=== PATIENT | female | born 1950 | race Caucasian/White ===

== ENCOUNTER 2017-01-10 10:29 | Emergency (ER) | payer BC, MEDICARE ==
--- NOTE | 2017-01-10 10:50 | ER Document Report ---
ED Medical Screen (RME) - General Chief Complaint: Altered Mental Status Stated Complaint: FELL/ARM PAIN Time seen by provider: 10:47 Mode of Arrival: Ambulatory Information source: Patient Notes: 66-year-old diabetic female had 2 episodes last night 1 at 2:00 and one at 4:35 that lasted 25 minutes of incoherent speech, not knowing what was wrong, her daughter witnessed the episodes where she was supine on the chair flailing her arms around. She also injured her left arm on the walker. No history of stroke. Fell forward when she missed the chair at home. She is normal at this time. TRAVEL OUTSIDE OF THE [place] IN LAST 30 DAYS: No - Related Data Allergies/Adverse Reactions: No Known Allergies Allergy (Unverified 01/10/17 10:40) Past Medical History Endocrine Medical History: Reports: Hx Diabetes Mellitus Type 2 Renal/ Medical History: Denies: Hx Peritoneal Dialysis Physical Exam - Vital signs Vitals: Temp Pulse Resp BP Pulse Ox 98 F 100 18 156/80 H 100 01/10/17 10:35 01/10/17 10:35 01/10/17 10:35 01/10/17 10:35 01/10/17 10:35 Course - Vital Signs Vital signs: Temp Pulse Resp BP Pulse Ox 98 F 100 18 156/80 H 100 01/10/17 10:35 01/10/17 10:35 01/10/17 10:35 01/10/17 10:35 01/10/17 10:35
[2017-01-10 11:12] LABS: ABSOLUTE BASOPHILS # (AUTO) 0.1 10^3/uL (0.0-0.2); ABSOLUTE EOSINOPHILS # (AUTO) 0.1 10^3/uL (0.0-0.6); ABSOLUTE LYMPHOCYTES (AUTO) 1.2 10^3/uL (0.5-4.7); ABSOLUTE MONOCYTES (AUTO) 0.3 10^3/uL (0.1-1.4); ABSOLUTE NEUT (AUTO) 8.9 10^3/uL (1.7-8.2); BASOPHILS % (AUTO) 0.6 % (0-2); EOSINOPHILS % (AUTO) 1.3 % (0-6); HEMATOCRIT 28.6 % (36.0-47.0); HEMOGLOBIN 9.7 g/dL (12.0-15.5); HGB HCT DIFFERENCE 0.5; LYMPHOCYTES % (AUTO) 11.6 % (13-45); MEAN CORPUSCULAR HEMOGLOBIN 32.3 pg (27.0-33.4); MEAN CORPUSCULAR HGB CONC 34.1 g/dL (32.0-36.0); MEAN CORPUSCULAR VOLUME 95 fl (80-97); MONOCYTES % (AUTO) 2.8 % (3-13); RED BLOOD COUNT 3.01 10^6/uL (3.72-5.28); SEGMENTED NEUTROPHILS % (AUTO) 83.7 % (42-78); WHITE BLOOD COUNT 10.6 10^3/uL (4.0-10.5)
[2017-01-10 11:18] LABS: PARTIAL THROMBOPLASTIN TIME 32.3 SEC (23.5-35.8)
[2017-01-10 11:20] LABS: PROTHROMBIN TIME 12.5 SEC (11.4-15.4)
[2017-01-10 11:30] LABS: ALANINE AMINOTRANSFERASE 36 U/L (9-52); ALBUMIN 3.5 g/dL (3.5-5.0); ALCOHOL < 10 mg/dL (NONE DETECTED); ALKALINE PHOSPHATASE 93 U/L (38-126); ANION GAP 12 (5-19); ASPARTATE AMINO TRANSFERASE 32 U/L (14-36); BILIRUBIN,DIRECT 0.1 mg/dL (0.0-0.4); BILIRUBIN,TOTAL 0.2 mg/dL (0.2-1.3); BLOOD UREA NITROGEN 27 mg/dL (7-20); CALCIUM 9.1 mg/dL (8.4-10.2); CARBON DIOXIDE 22 mmol/L (22-30); CHLORIDE 111 mmol/L (98-107); CREATINE KINASE 256 U/L (30-135); CREATININE RESULT 0.93 mg/dL (0.52-1.25); GLUCOSE 87 mg/dL (75-110); MAGNESIUM 1.3 mg/dL (1.6-2.3); POTASSIUM 4.6 mmol/L (3.6-5.0); SODIUM 145.1 mmol/L (137-145); TOTAL PROTEIN 6.5 g/dL (6.3-8.2)
[2017-01-10 11:40] LABS: CREATINE KINASE MB 6.04 ng/mL (<4.55); TROPONIN I 0.015 ng/mL
[2017-01-10 12:06] LABS: APPEARANCE,URINE CLOUDY; BILIRUBIN,URINE NEGATIVE (NEGATIVE); GLUCOSE, URINE NEGATIVE (NEGATIVE); KETONES,URINE NEGATIVE (NEGATIVE); LEUKOCYTE ESTERASE,URINE SMALL (NEGATIVE); NITRITE,URINE NEGATIVE (NEGATIVE); PROTEIN,URINE >=500 mg/dL (NEGATIVE); URINE SPECIFIC GRAVITY 1.012; UROBILINOGEN,URINE NEGATIVE mg/dL (<2.0)
--- NOTE | 2017-01-10 12:06 | ER Document Report ---
ED Neuro Symptoms/Deficit - General Mode of Arrival: Ambulatory Information source: Patient, Relative TRAVEL OUTSIDE OF THE [place] IN LAST 30 DAYS: No - HPI Patient complains to provider of: Falling, Speech Impairment Onset: This morning Baseline Cognitive: Alert, oriented X 3 Baseline Gait: Uses a cane/walker Associated symptoms: Other - see notes above <JOHN MIGUEL - Last Filed: 01/10/17 12:36> <CARLOS MANUEL HULL - Last Filed: 01/10/17 16:02> - General Chief Complaint: Altered Mental Status Stated Complaint: FELL/ARM PAIN Notes: 66 year old female with history of diabetes mellitus type 2 presents to the ED after having 2 TIA like episodes earlier this morning. Family states that at 0200, the patient woke up in a "paranoid" state, was half hanging off her WC as if she was too weak to pull her self back up, and didn't know where she was. Family reports that this episode lasted about 25 minutes and then the patient went back to sleep. Patient's daughter woke up at 0430 and saw that the patient had fallen on the ground with the wheelchair knocked over. Daughter helped her up to the wheelchair and noticed that the patient's speech was incoherent. When the daughter was able to make out what the patient was saying, she states that she kept repeating "I want to get back in 'bread'." Daughter states that she didn't think this was due to her diabetes and denies checking the patient's blood sugars. Daughter states that at 0830 this morning the patient's blood sugar was 32. Patient proceeded to eat an omelet at 0900. Patient's primary care provider is Dr. Doyle. (JOHN MIGUEL) This 66-year-old diabetic with significant vascular disease, comes emergency room with a episode about 2 AM and again about 4:30 AM of confusion, disorientation, and speech problems. Both episodes lasted approximately 20-25 minutes. Put sugars were not checked. The patient recalls the episodes and states it does not feel like when her sugar is low. By history she checked her sugars about 8:30 AM and her blood sugar was 32 and at that time she ate an omelette. She stopped smoking in the recent past. She does take statins, insulin, metformin, lisinopril, and Lasix. She does not take a daily aspirin. (CARLOS MANUEL HULL) - Related Data Allergies/Adverse Reactions: No Known Allergies Allergy (Unverified 01/10/17 10:40) Past Medical History - General Information source: Patient - Social History Smoking Status: Former Smoker Chew tobacco use (# tins/day): No Frequency of alcohol use: None Drug Abuse: None Family History: Reviewed & Not Pertinent Patient has suicidal ideation: No Patient has homicidal ideation: No Endocrine Medical History: Reports: Hx Diabetes Mellitus Type 2 Renal/ Medical History: Denies: Hx Peritoneal Dialysis Past Surgical History: Reports: Hx Section - Immunizations Hx Diphtheria, Pertussis, Tetanus Vaccination: Yes <JOHN MIGUEL - Last Filed: 01/10/17 12:36> Review of Systems - Review of Systems Constitutional: No symptoms reported EENT: No symptoms reported Cardiovascular: No symptoms reported Respiratory: No symptoms reported Gastrointestinal: No symptoms reported Genitourinary: No symptoms reported Female Genitourinary: No symptoms reported Musculoskeletal: No symptoms reported Skin: No symptoms reported Hematologic/Lymphatic: No symptoms reported Neurological/Psychological: See HPI, Weakness, Speech impairment -: Yes All other systems reviewed and negative <JOHN MIGUEL - Last Filed: 01/10/17 12:36> Physical Exam - General General appearance: Alert In distress: None - HEENT Head: Normocephalic, Atraumatic Eyes: Normal Extraocular movements intact: Yes Pupils: PERRL Neck: Carotid bruit - loud bilateral carotid bruits. No: Normal - Respiratory Respiratory status: No respiratory distress Breath sounds: Normal - Cardiovascular Rhythm: Regular Heart sounds: Normal auscultation - Abdominal Inspection: Normal Distension: No distension Tenderness: Nontender - Back Back: Normal - Extremities General upper extremity: Normal ROM. No: Normal inspection - see forearm exam below General lower extremity: Normal inspection, Normal ROM Elbow: Normal, Nontender, Other - Good supination and pronation.. No: Limited ROM Forearm: Other - Small area of bruising to the left medial forearm. No: Normal - Neurological Neuro grossly intact: Yes - Psychological Associated symptoms: Normal affect, Normal mood - Skin Skin Temperature: Warm Skin Moisture: Dry Skin Color: Normal <JOHN MIGUEL - Last Filed: 01/10/17 12:36> Course - Laboratory Result Diagrams: 01/10/17 11:00 01/10/17 11:00 <JOHN MIGUEL - Last Filed: 01/10/17 12:36> - Laboratory Result Diagrams: 01/10/17 11:00 01/10/17 11:00 - Diagnostic Test Radiology reviewed: Image reviewed, Reports reviewed - CT MAI shows significant stenosis of the origin of the left common carotid artery and left subclavian artery. There is heavy calcifications at the origin of the right brachiocephalic artery and left common carotid artery, and the left subclavian artery. There are bilateral calcifications in the carotid bulb and proximal internal carotid arteries. There is no significant stenosis on the right. <CARLOS MANUEL HULL - Last Filed: 01/10/17 16:02> - Vital Signs Vital signs: Temp Pulse Resp BP Pulse Ox 98 F 99 21 H 142/72 H 97 01/10/17 10:35 01/10/17 15:00 01/10/17 15:01 01/10/17 15:00 01/10/17 15:01 - Laboratory Laboratory results interpreted by me: 01/10/17 01/10/17 01/10/17 11:00 11:00 11:00 WBC 10.6 H RBC 3.01 L Hgb 9.7 L Hct 28.6 L Plt Count 453 H Seg Neutrophils % 83.7 H Lymphocytes % 11.6 L Monocytes % 2.8 L Absolute Neutrophils 8.9 H Sodium 145.1 H Chloride 111 H BUN 27 H Magnesium 1.3 L Creatine Kinase 256 H CK-MB (CK-2) 6.04 H Urine Protein Urine Blood Ur Leukocyte Esterase 01/10/17 11:08 WBC RBC Hgb Hct Plt Count Seg Neutrophils % Lymphocytes % Monocytes % Absolute Neutrophils Sodium Chloride BUN Magnesium Creatine Kinase CK-MB (CK-2) Urine Protein >=500 H Urine Blood SMALL H Ur Leukocyte Esterase SMALL H Discharge <JOHN MIGUEL - Last Filed: 01/10/17 12:36> <CARLOS MANUEL HULL - Last Filed: 01/10/17 16:02> - Discharge Clinical Impression: TIA (transient ischemic attack) Qualifiers: Transient cerebral ischemia type: unspecified Qualified Code(s): G45.9 - Transient cerebral ischemic attack, unspecified Carotid artery stenosis, symptomatic Qualifiers: Laterality: left Qualified Code(s): I65.22 - Occlusion and stenosis of left carotid artery Condition: Stable Disposition: HOME, SELF-CARE Additional Instructions: Transient Ischemic Attack: You have been diagnosed as having a transient ischemic attack (TIA). This is caused when an artery to the brain has been temporarily blocked. It can result in visual changes, difficulty with speech, and weakness or numbness -- usually limited to one side of the body. TIA symptoms usually resolve within an hour, but a TIA is serious, as it may be a warning sign of an impending stroke. To prevent further episodes, you may be placed on medication to reduce the possibility that your platelets will aggregate and form blood clots in the arteries that supply the brain. Usually, this includes aspirin and sometimes other platelet inhibitors. Further evaluation is often necessary to make an exact diagnosis as to where these blood clots are originating, and if anything else needs to be done to correct the problem. Call the physician or go to the emergency room if episodes occur with increasing frequency. If symptoms occur that don't go away within a few minutes , call 911. Take the Aggrenox medication every 12 hours as prescribed--start tomorrow morning. You were given the first dose today in the emergency room. Follow-up with Dr. Castro on Friday or Friday for referral to a vascular surgeon-- tell him about the CT scan that was done today. RETURN TO THE EMERGENCY ROOM IF ANY NEW OR WORSENING SYMPTOMS. Prescriptions: Aspirin/Dipyridamole [Aggrenox 25 mg-200 mg Capsule] 1 each PO Q12 #30 cpmp.12hr Referrals: ARMINDA CASTRO MD [COMMUNITY BASED STAFF] - 01/13/17 Scribe Attestation: 01/10/17 16:02 I personally performed the services described in the documentation, reviewed and edited the documentation which was dictated to the scribe in my presence, and it accurately records my words and actions. (CARLOS MANUEL HULL) Scribe Documentation - Scribe Written by Sony:: Sony Velazquez, 01/10/2017 1222 acting as scribe for :: Miriam <JOHN MIGUEL - Last Filed: 01/10/17 12:36>
[2017-01-10 12:21] LABS: URINE BARBITURATES SCREEN NEGATIVE; URINE METHADONE SCREEN NEGATIVE; URINE OPIATES LOW NEGATIVE; URINE PHENCYCLIDINE SCREEN NEGATIVE
[2017-01-10] MEDS ORDERED: NORMAL SALINE 1000 ML 1,000 ML IV ONE (12:47)
[2017-01-10] MEDS ORDERED: ASPIRIN/DIPYRIDAMOLE 25-200 MG 1 CAP.SR CPMP.12HR PO ONE (15:52)
--- NOTE | 2017-01-10 16:26 | EKG REPORT ---
SEVERITY:- OTHERWISE NORMAL ECG - SINUS RHYTHM MINIMAL ST DEPRESSION, INFERIOR LEADS : Confirmed by: Damian Davidson MD 10-Jan-2017 16:26:31
[2017-01-10 16:39] VITALS: BP 100/75
== END 2017-01-10 16:30 | disposition home or self-care (01) ==
LOC: ER 10:29
DX: G45.9 Transient cerebral ischemic attack, unspecified (principal); I65.22 Occlusion and stenosis of left carotid artery; R41.82 Altered mental status, unspecified; R53.1 Weakness; E11.9 Type 2 diabetes mellitus without complications; Z79.84 Long term (current) use of oral hypoglycemic drugs; Z87.891 Personal history of nicotine dependence
CPT/HCPCS: 93005; 99285; 36415; 87086; 82553; 82962; 80307 ×2; 82550; 83735; 85025; 85610; 85730; 80053; 81001; 84484; 71010; 70470; 70498; 93010; A9270

== ENCOUNTER 2017-03-20 10:47 | Day surgery (SDC) | payer MEDICARE ==
[~2017-03-20 10:47] MED LIST: BUPIVACAINE HCL 0.75% INJ/PF (7.5 MG/1 ML) 10 ML SDV OD PRN; CHONDR SU A NA/HYALUR INTRAOC KIT (SURGICARE) ONE; KETOROLAC TROMETHAMINE 0.45% 4 DROP/0.4 ML DROPERETTE OD PRN; LIDOCAINE 1% INJ-PF (10 MG/ML) 30 ML SDV ONE; PHENYLEPHRINE/KETOROLAC 1%-0.3% 4 ML VIAL ONE
[2017-03-20] MEDS: CYCLOPENTOLATE 0.2%/PHENYLEPHRINE 1% OPH SOLN 2 ML OD PRN ×3 (10:56→11:40)
[2017-03-20] MEDS: TROPICAMIDE 1% OPH SOLN 3 ML OD PRN ×3 (10:56→11:40)
[2017-03-20] MEDS: BESIFLOXACIN HCL 0.6% OPH SUSP 5 ML BOTTLE OD PRN ×4 (10:57→12:14)
[2017-03-20] MEDS: TETRACAINE HCL 0.5% OPH SOLN 2 ML OD PRN ×3 (10:58→11:52)
[2017-03-20] MEDS ORDERED: MIDAZOLAM 2 MG/2 ML INJ ONE (11:24)
--- NOTE | 2017-03-23 20:14 | [facility] OPERATIVE REPORT E ---
[facility] Operative Report NAME: KENY SMITH AGE: 66Y DATE OF SURGERY: 03/20/2017 ROOM: PREOPERATIVE DIAGNOSIS: Cataract, right eye. POSTOPERATIVE DIAGNOSIS: Cataract, right eye. OPERATION: Cataract extraction with intraocular lens implant of the right eye. SURGEON: CLIFF GROSSMAN M.D. ANESTHESIA: Topical. PROCEDURE: After obtaining appropriate consent, the patient's right eye was prepped and draped in sterile fashion as well as the surgeon in a sterile manner and cataract surgery was started. First a paracentesis blade was used to make a small side-port incision. Viscoelastic was used to inflate the anterior chamber. Next a 2.4 mm incision was made with the paracentesis blade. A continuous capsulorrhexis incision was made using a cystotome and Utrata forceps. Following this hydrodissection was carried out to make the lens fully loose and mobile and it was rotated 90 degrees. Following this, a wdtkcx-vap-hmbavyx technique was used to phacoemulsify the lens with a CDE of 12.24. The remaining cortex was removed with irrigation/aspiration. Provisc was instilled into the capsular bag to inflate the bag. A SN60WF, 24.0 diopter lens was placed. The remaining viscoelastic material was removed with irrigation/aspiration. Following this, a 10-0 nylon suture was used to close the incision and it was found to be watertight. Vigamox was instilled in the eye and a protective shield was placed over the eye. The patient returned to the postoperative recovery in stable condition. DICTATING PHYSICIAN: CLIFF GROSSMAN M.D. [id number] PHY#: [id number] ID: [id number] JOB#: [id number] ACCT: [id number] cc:CLIFF GROSSMAN M.D. >
--- NOTE | 2017-03-23 20:14 | [facility] DISCHARGE SUMMARY E ---
[facility] Discharge Summary NAME: KENY SMITH AGE: 66Y ADMITTED: 03/20/2017 DISCHARGED: 03/20/2017 HISTORY OF PRESENT ILLNESS AND HOSPITAL COURSE: This is a 66-year-old patient who underwent cataract extraction of the right eye. DIAGNOSIS: Cataract, right eye. HOSPITAL COURSE: She underwent surgery because she was having difficulty with glare from headlights. The patient had difficulty seeing things clearly. DISCHARGE INSTRUCTIONS: 1. She should be on a regular diet. 2. No bending at the waist and no heavy lifting. 3. She is to use Besivance, Ilevro, and Durezol at 3 p.m. and 8 p.m. and sleep with a rigid shield. 4. I will see the patient for a one-day postop visit. DICTATING PHYSICIAN: CLIFF GROSSMAN M.D. [id number] PHY#: [id number] ID: [id number] JOB#: [id number] ACCT: [id number] cc:CLIFF GROSSMAN M.D. >
== END 2017-03-20 13:21 | disposition home or self-care (01) ==
LOC: SC 10:47
PROVIDERS: ATTEND Internal Medicine
PROC: 08RJ3JZ Replacement of Right Lens with Synthetic Substitute, Percutaneous Approach (ICD-10-PCS; principal; 2017-03-20 12:00)
DX: H25.813 Combined forms of age-related cataract, bilateral (principal); H57.03 Miosis; E11.3312 Type 2 diabetes mellitus with moderate nonproliferative diabetic retinopathy with macular edema, left eye; I10 Essential (primary) hypertension; Z79.4 Long term (current) use of insulin; Z87.891 Personal history of nicotine dependence; Z79.84 Long term (current) use of oral hypoglycemic drugs
CPT/HCPCS: 66984; 82962; V2632; J2250; J3490 ×2; A9270; C9447; 142

== ENCOUNTER 2017-04-10 10:15 | Day surgery (SDC) | payer MEDICARE ==
[~2017-04-10 10:15] MED LIST changes: -BUPIVACAINE HCL 0.75% INJ/PF (7.5 MG/1 ML) 10 ML SDV OD PRN; -CHONDR SU A NA/HYALUR INTRAOC KIT (SURGICARE) ONE; -KETOROLAC TROMETHAMINE 0.45% 4 DROP/0.4 ML DROPERETTE OD PRN; +KETOROLAC TROMETHAMINE 0.45% 4 DROP/0.4 ML DROPERETTE OS PRN; -LIDOCAINE 1% INJ-PF (10 MG/ML) 30 ML SDV ONE; +MIDAZOLAM 2 MG/2 ML INJ ONE; -PHENYLEPHRINE/KETOROLAC 1%-0.3% 4 ML VIAL ONE
[2017-04-10] MEDS ORDERED: CHONDR SU A NA/HYALUR INTRAOC KIT (SURGICARE) ONE (10:32)
[2017-04-10] MEDS ORDERED: PHENYLEPHRINE/KETOROLAC 1%-0.3% 4 ML VIAL ONE (10:32)
[2017-04-10] MEDS ORDERED: LIDOCAINE 1% INJ-PF (10 MG/ML) 30 ML SDV ONE (10:32)
[2017-04-10] MEDS: CYCLOPENTOLATE 0.2%/PHENYLEPHRINE 1% OPH SOLN 2 ML OS PRN ×3 (10:36→10:53)
[2017-04-10] MEDS: TROPICAMIDE 1% OPH SOLN 3 ML OS PRN ×3 (10:36→10:53)
[2017-04-10] MEDS: BESIFLOXACIN HCL 0.6% OPH SUSP 5 ML BOTTLE OS PRN ×3 (10:37→11:21)
[2017-04-10] MEDS: TETRACAINE HCL 0.5% OPH SOLN 2 ML OS PRN ×3 (10:38→10:57)
[2017-04-10] MEDS ORDERED: DEXTROSE 50%-WATER 25 GM/50 ML DISP.SYRIN IV ONE (10:41)
--- NOTE | 2017-04-10 12:48 | [facility] OPERATIVE REPORT E ---
[facility] Operative Report NAME: KENY SMITH AGE: 66Y DATE OF SURGERY: 04/10/2017 ROOM: PREOPERATIVE DIAGNOSES: 1. CATARACT, LEFT EYE. 2. PUPIL MIOSIS, LEFT EYE. POSTOPERATIVE DIAGNOSES: 1. CATARACT, LEFT EYE. 2. PUPIL MIOSIS, LEFT EYE. OPERATION: Complex cataract extraction with use of a Malyugin ring due to a very miotic pupil. SURGEON: CLIFF GROSSMAN M.D. ANESTHESIA: Topical. PROCEDURE: After obtaining appropriate consent, the patient's left eye was prepped and draped in sterile fashion as well as the surgeon in a sterile manner and cataract surgery was started. First a paracentesis blade was used to make a small side-port incision. Viscoelastic was used to inflate the anterior chamber. Next a 2.4-mm incision was made with the paracentesis blade. A continuous capsulorrhexis incision was made using a cystotome and Utrata forceps. Following this hydrodissection was carried out to make the lens fully loose and mobile and it was rotated 90 degrees. Following this, a mtmmbt-snr-iojccqg technique was used to phacoemulsify the lens with a CDE of 8.19. The remaining cortex was removed with irrigation/aspiration. Provisc was instilled into the capsular bag to inflate the bag. A SN60WF, 24.0 diopter lens was placed. The remaining viscoelastic material was removed with irrigation/aspiration. Following this, a 10-0 nylon suture was used to close the incision and it was found to be watertight. Vigamox was instilled in the eye and a protective shield was placed over the eye. The patient returned to the postoperative recovery in stable condition. Prior to making the capsulorrhexis a Malyugin ring was inserted due to a very miotic pupil. This was removed at the end of the case. DICTATING PHYSICIAN: CLIFF GROSSMAN M.D. [id number] PHY#: [id number] ID: [id number] JOB#: [id number] ACCT: [id number] cc:CLIFF GROSSMAN M.D. >
--- NOTE | 2017-04-10 12:49 | [facility] DISCHARGE SUMMARY E ---
[facility] Discharge Summary NAME: KENY SMITH AGE: 66Y ADMITTED: 04/10/2017 DISCHARGED: 04/10/2017 HISTORY: This is a 66-year-old female who underwent cataract extraction, complex, of the left eye. The patient underwent surgery because she was having difficulty reading medicine bottles and the newspaper. DIAGNOSES: 1. Cataract, left eye. 2. Pupil miosis requiring a Malyugin ring. DISCHARGE INSTRUCTIONS: Patient should be on a regular diet, no bending at the waist, no heavy lifting. She should use her Besivance, Ilevro and Durezol at 3 p.m. and 8 p.m. and sleep with a rigid shield, and I will see her for her 1-day postoperative tomorrow. DICTATING PHYSICIAN: CLIFF GROSSMAN M.D. [id number] PHY#: [id number] ID: [id number] JOB#: [id number] ACCT: [id number] cc:CLIFF GROSSMAN M.D. >
== END 2017-04-10 12:28 | disposition home or self-care (01) ==
LOC: SC 10:15
PROVIDERS: ATTEND Internal Medicine
PROC: 08RK3JZ Replacement of Left Lens with Synthetic Substitute, Percutaneous Approach (ICD-10-PCS; principal; 2017-04-10 11:30)
DX: H25.812 Combined forms of age-related cataract, left eye (principal); H57.03 Miosis; Z96.1 Presence of intraocular lens; I10 Essential (primary) hypertension; E11.9 Type 2 diabetes mellitus without complications; Z79.4 Long term (current) use of insulin; Z79.84 Long term (current) use of oral hypoglycemic drugs; Z79.899 Other long term (current) drug therapy
CPT/HCPCS: 66982; 82962; V2632; J2250; J3490 ×3; A9270; C9447; 142

== ENCOUNTER → 2018-01-14 | Outpatient (CLI) | payer MEDICARE ==
--- NOTE | 2018-01-14 16:47 | WOMENS IMAGING REPORT ---
EXAM DESCRIPTION: 3D SCREENING MAMMO BILAT COMPLETED DATE/TIME: 01/14/2018 11:58 am REASON FOR STUDY: ROUTINE SCREENING;Z12.31 Z12.31 ENCNTR SCREEN MAMMOGRAM FOR MALIGNANT NEOPLASM OF MALICK COMPARISON: None. TECHNIQUE: Standard craniocaudal and mediolateral oblique views of each breast recorded using digita l acquisition and breast tomosynthesis. LIMITATIONS: None. FINDINGS: No masses, calcifications or architectural distortion. No areas of suspicion. Read with the assistance of CAD. .[facility] - R2 Cenova Version 1.3 .[facility] - R2 Cenova Version 1.3 .[facility] - R2 Cenova Version 2.4 .[facility] - R2 Cenova Version 2.4 .[facility] - R2 [employer] Version 9.2 IMPRESSION: NORMAL MAMMOGRAM. BIRADS 1. BREAST DENSITY: c. The breasts are heterogeneously dense, which may obscure small masses. BIRAD: 1 NEGATIVE RECOMMENDATION: ROUTINE SCREENING COMMENT: The patient has been notified of the results by letter per SA requirements. Additional no tification policies are in place for contacting patient with suspicious or incomplete findings. Quality ID #[id number]: The [employer] recommends an annual screening mammogram for women aged 40 years or over. This facility utilizes a reminder system to ensure that all patients receive reminder letters, and/or direct phone calls for appointments. This includes reminders for routine scr eening mammograms, diagnostic mammograms, or other Breast Imaging Interventions when appropriate. Th is patient will be placed in the appropriate reminder system. The [employer] (ACR) has developed recommendations for screening MRI of the breast s in certain patient populations, to be used in conjunction with mammography. Breast MRI surveillanc e may be appropriate for women with more than 20% lifetime risk of developing breast cancer as deter mined by genetic testing, significant family history of the disease, or history of mantle radiation f or Hodgkins Disease. ACR Practice Guidelines 2008. DBT Technology DBT is a type of tomographic mammography. With conventional mammography, overlapping breast tissue ma y make lesions difficult to detect, even with good compression. DBT uses an x-ray tube that rotates a round the breast, taking images at different angles. These images are then combined to create thin sl ices of the breast that the radiologist can view as a 3D reconstruction. The [employer] unit can perform full-field digital mammograms (2D imaging); or DBT (3D imaging); or both, in a combination mode that quickly performs both the mammogram and the tomosynthesis scan while the breast is still compressed. PQRS 6045F: Fluoroscopic imaging is not utilized for breast tomosynthesis. TECHNICAL DOCUMENTATION: FINDING NUMBER: (1) ASSESSMENT: (1) JOB ID: [id number] [employer]- All Rights Reserved Reading location - IP/workstation name: [email or web address]
== END ==
LOC: WI 11:31
PROVIDERS: ATTEND Physician Assistant
DX: Z12.31 Encounter for screening mammogram for malignant neoplasm of breast (principal)
CPT/HCPCS: 77063; 77067

== ENCOUNTER → 2018-02-02 | Outpatient (CLI) | payer MEDICARE ==
--- NOTE | 2018-02-02 15:37 | RADIOLOGY REPORT (SQ) ---
EXAM DESCRIPTION: CAROTID DOPPLER COMPLETED DATE/TIME: 02/02/2018 2:03 pm REASON FOR STUDY: STENOSIS I65.23 OCCLUSION AND STENOSIS OF BILATERAL CAROTID ARTERIES COMPARISON: None. TECHNIQUE: Grayscale ultrasound, Doppler velocity and spectra, and color Doppler images acquired of the extra-cranial carotid and vertebral arteries. Images stored on PACS. LIMITATIONS: None. FINDINGS: RIGHT CAROTID CCA Velocities: 63 centimeters/second ICA Velocities Peak systolic 186 cm/s. End diastolic 32 cm/s. Proximal ICA/CCA peak systolic ratio 2.9. Heterogeneous and irregular plaque. LEFT CAROTID CCA Velocities: 85 centimeters/second ICA Velocities Peak systolic 235 cm/s. End diastolic 64 cm/s. Proximal ICA/CCA peak systolic ratio 2.7. Heterogeneous and irregular plaque. VERTEBRAL ARTERIES: Antegrade flow. Normal waveforms. SUBCLAVIAN ARTERIES: No finding. OTHER: No other significant finding. IMPRESSION: Extensive atherosclerotic disease bilaterally. Stenosis the right internal carotid on t leesa order 50-69% and in the left on the order of 70 to 99%, likely closer to 70% appear COMMENT: Quality ID #195: Velocity criteria are extrapolated from the diameter data as defined by [employer] in Ultrasound Consensus Conference. Radiology 2003: 229; 340-346. TECHNICAL DOCUMENTATION: JOB ID: [id number] [employer]- All Rights Reserved Reading location - IP/workstation name: [email or web address]
== END ==
LOC: SP 12:40
PROVIDERS: ATTEND Internal Medicine Nephrology
DX: E11.22 Type 2 diabetes mellitus with diabetic chronic kidney disease (principal); I13.0 Hypertensive heart and chronic kidney disease with heart failure and stage 1 through stage 4 chronic kidney disease, or unspecified chronic kidney disease; N18.3 Chronic kidney disease, stage 3 (moderate); I65.23 Occlusion and stenosis of bilateral carotid arteries
CPT/HCPCS: 93880

== ENCOUNTER → 2018-02-20 | Outpatient (CLI) | payer MEDICARE ==
[2018-02-20 13:42] LABS: ABSOLUTE EOSINOPHILS # (AUTO) 0.3 10^3/uL (0.0-0.6); ABSOLUTE MONOCYTES (AUTO) 0.3 10^3/uL (0.1-1.4); ABSOLUTE NEUT (AUTO) 7.7 10^3/uL (1.7-8.2); BASOPHILS % (AUTO) 0.5 % (0-2); EOSINOPHILS % (AUTO) 3.6 % (0-6); HEMOGLOBIN 8.8 g/dL (12.0-15.5); LYMPHOCYTES % (AUTO) 10.9 % (13-45); MEAN CORPUSCULAR HGB CONC 32.7 g/dL (32.0-36.0); MEAN CORPUSCULAR VOLUME 95 fl (80-97); MONOCYTES % (AUTO) 3.2 % (3-13); PLATELET COUNT 382 10^3/uL (150-450); RED BLOOD COUNT 2.85 10^6/uL (3.72-5.28); RED CELL DISTRIBUTION WIDTH 14.9 % (11.5-14.0); SEGMENTED NEUTROPHILS % (AUTO) 81.8 % (42-78); TOTAL CELLS COUNTED % (AUTO) 100 %; WHITE BLOOD COUNT 9.4 10^3/uL (4.0-10.5)
[2018-02-20 14:06] LABS: ALANINE AMINOTRANSFERASE 53 U/L (9-52); ALBUMIN 3.4 g/dL (3.5-5.0); ALKALINE PHOSPHATASE 129 U/L (38-126); ANION GAP 13 (5-19); APPEARANCE,URINE CLOUDY; ASPARTATE AMINO TRANSFERASE 32 U/L (14-36); BILIRUBIN,URINE NEGATIVE (NEGATIVE); BLOOD UREA NITROGEN 55 mg/dL (7-20); CALCIUM 8.9 mg/dL (8.4-10.2); CARBON DIOXIDE 15 mmol/L (22-30); CHLORIDE 116 mmol/L (98-107); COLOR,URINE YELLOW; GLUCOSE 205 mg/dL (75-110); GLUCOSE, URINE >=500 mg/dL (NEGATIVE); IRON(TIBC) 29.9 ug/dL (37-170); KETONES,URINE NEGATIVE (NEGATIVE); LEUKOCYTE ESTERASE,URINE MODERATE (NEGATIVE); NITRITE,URINE NEGATIVE (NEGATIVE); POTASSIUM 5.4 mmol/L (3.6-5.0); PROTEIN,URINE >=500 mg/dL (NEGATIVE); URINE SPECIFIC GRAVITY 1.013; UROBILINOGEN,URINE NEGATIVE mg/dL (<2.0)
[2018-02-20 15:02] LABS: BILIRUBIN,TOTAL < 0.1 mg/dL (0.2-1.3)
[2018-02-23 11:38] LABS: A/G RATIO 0.7 (0.7-1.7); ALBUMIN 2 2.8 g/dL (2.9-4.4); ALPHA-2-GLOBULIN 2 1.1 g/dL (0.4-1.0); BETA GLOBULINS 1.3 g/dL (0.7-1.3); GAMMA GLOBULIN 1.2 g/dL (0.4-1.8); GLOBULIN TOTAL 3.9 g/dL (2.2-3.9); MONOCLONAL SPIKE Not Observed g/dL (Not Observ); PROTEIN TOTAL SERUM 6.7 g/dL (6.0-8.5)
== END ==
LOC: OD 12:47
PROVIDERS: ATTEND Internal Medicine Nephrology
DX: I12.9 Hypertensive chronic kidney disease with stage 1 through stage 4 chronic kidney disease, or unspecified chronic kidney disease (principal); N18.3 Chronic kidney disease, stage 3 (moderate); E11.9 Type 2 diabetes mellitus without complications; D64.9 Anemia, unspecified
CPT/HCPCS: 36415; 80053; 81001; 82607; 82728; 83540; 83550; 84165; 84443; 85025

== ENCOUNTER → 2018-03-13 | Outpatient (CLI) | payer MEDICARE ==
[2018-03-13 13:09] LABS: HEMATOCRIT 27.2 % (36.0-47.0); HEMOGLOBIN 8.4 g/dL (12.0-15.5); MEAN CORPUSCULAR HEMOGLOBIN 29.7 pg (27.0-33.4); MEAN CORPUSCULAR VOLUME 96 fl (80-97); PLATELET COUNT 479 10^3/uL (150-450); RED BLOOD COUNT 2.84 10^6/uL (3.72-5.28); RED CELL DISTRIBUTION WIDTH 14.9 % (11.5-14.0); WHITE BLOOD COUNT 11.4 10^3/uL (4.0-10.5)
[2018-03-13 13:25] LABS: ANION GAP 14 (5-19); BLOOD UREA NITROGEN 42 mg/dL (7-20); CALCIUM 8.8 mg/dL (8.4-10.2); CARBON DIOXIDE 12 mmol/L (22-30); CHLORIDE 118 mmol/L (98-107); GLUCOSE 61 mg/dL (75-110); PHOSPHORUS 5.6 mg/dL (2.5-4.5); POTASSIUM 5.7 mmol/L (3.6-5.0); SODIUM 144.3 mmol/L (137-145)
[2018-03-13 13:26] LABS: APPEARANCE,URINE CLOUDY; BILIRUBIN,URINE NEGATIVE (NEGATIVE); GLUCOSE, URINE 50 mg/dL (NEGATIVE); KETONES,URINE NEGATIVE (NEGATIVE); LEUKOCYTE ESTERASE,URINE SMALL (NEGATIVE); NITRITE,URINE NEGATIVE (NEGATIVE); PROTEIN,URINE 100 mg/dL (NEGATIVE); URINE SPECIFIC GRAVITY 1.012; UROBILINOGEN,URINE NEGATIVE mg/dL (<2.0)
[2018-03-13 13:28] LABS: COLOR,URINE YELLOW
== END ==
LOC: OD 12:28
PROVIDERS: ATTEND Internal Medicine Nephrology
DX: I12.9 Hypertensive chronic kidney disease with stage 1 through stage 4 chronic kidney disease, or unspecified chronic kidney disease (principal); N18.3 Chronic kidney disease, stage 3 (moderate); D64.9 Anemia, unspecified; E11.9 Type 2 diabetes mellitus without complications
CPT/HCPCS: 36415; 80048; 81001; 83970; 84100; 85027

== ENCOUNTER → 2018-03-16 | Outpatient (CLI) | payer MEDICARE ==
[2018-03-16 13:49] LABS: HEMATOCRIT 23.9 % (36.0-47.0); MEAN CORPUSCULAR HEMOGLOBIN 30.9 pg (27.0-33.4); MEAN CORPUSCULAR HGB CONC 32.8 g/dL (32.0-36.0); MEAN CORPUSCULAR VOLUME 94 fl (80-97); PLATELET COUNT 407 10^3/uL (150-450); RED BLOOD COUNT 2.53 10^6/uL (3.72-5.28); RED CELL DISTRIBUTION WIDTH 14.7 % (11.5-14.0); WHITE BLOOD COUNT 12.9 10^3/uL (4.0-10.5)
[2018-03-16 13:51] LABS: HEMOGLOBIN 7.8 g/dL (12.0-15.5)
[2018-03-16 14:18] LABS: ANION GAP 12 (5-19); BLOOD UREA NITROGEN 54 mg/dL (7-20); CARBON DIOXIDE 18 mmol/L (22-30); CHLORIDE 117 mmol/L (98-107); GLUCOSE 41 mg/dL (75-110); IRON(TIBC) 31.8 ug/dL (37-170); POTASSIUM 4.2 mmol/L (3.6-5.0)
== END ==
LOC: OD 13:08
PROVIDERS: ATTEND Internal Medicine Nephrology
DX: E11.22 Type 2 diabetes mellitus with diabetic chronic kidney disease (principal); N18.3 Chronic kidney disease, stage 3 (moderate); D64.9 Anemia, unspecified
CPT/HCPCS: 36415; 80048; 82728; 83540; 83550; 85027